=== PATIENT | female | born 1970 | race Hispanic/Latino ===

== ENCOUNTER 2018-05-16 14:30 | Emergency (ER) | payer MEDICAID, OTHER ==
[2018-05-16 14:40] VITALS: O2SAT 100
[2018-05-16 15:09] VITALS: RESP 16
--- NOTE | 2018-05-16 15:58 | ED PDOC ---
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 Patient reports she is occasionally unable to catch her breath. She was seen by her PMD who prescribed her muscle relaxants and Prednisolone. However, x2 days after she finished taking her medications, patient states pain started again. Patient had tests done which sh owed an elevated D Dimer of 0.863, she was advised to come to the ED for a chest CT. She denies any fever, chills, abdominal pain, nausea, vomit, headache, weakness, numbness or tingling. No further medical complaints. PMD: Jg Rod Past Medical History Reviewed: Historical Data, Nursing Documentation, Vital Signs Vital Signs: Last Vital Signs Temp 98.4 F 05/16/18 14:39 Pulse 74 05/16/18 14:39 Resp 16 05/16/18 15:07 BP 123/86 05/16/18 14:39 Pulse Ox 100 05/16/18 15:07 - Medical History PMH: Hypothyroidism Other PMH: murmur - Surgical History Surgical History: No Surg Hx - Family History Family History: States: Unknown Family Hx - Social History Alcohol: None Drugs: Denies - Allergies Allergies/Adverse Reactions: Allergies Allergy/AdvReac Type Severity Reaction Status Date / Time Sulfa (Sulfonamide Allergy RASH Verified 05/16/18 14:40 Antibiotics) Curb-65 Severity Score - CURB-65 Severity Score Confusion: No Bun >19mg/dl (>7mmol/L): No Respiratory Rate greater than/equal to 30: No Systolic BP <90 or Diastolic BP less than/equal 60mmHg: No Age >64: No Curb-65 Score: 0 Percentage 30-day mortality: 0.6% Wells Criteria for PE - Wells Criteria for Pulmonary Embolism Clinical Signs and Symptoms of DVT: No P.E is #1 Diagnosis, or Equally Likely: No Heart Rate >100: No Immobilization at least 3 days;Surgery previous 4 weeks: No Previous, objectively diagnosed PE or DVT: No Hemoptysis: No Malignancy w/treatment within 6 months, or palliative: No Total Score: 0 Review of Systems ROS Statement: Except As Marked, All Systems Reviewed And Found Negative Constitutional: Negative for: Fever, Chills Cardiovascular: Positive for: Chest Pain Respiratory: Positive for: Shortness of Breath Gastrointestinal: Negative for: Nausea, Vomiting, Abdominal Pain Neurological: Negative for: Weakness, Numbness, Headache Physical Exam - Reviewed Nursing Documentation Reviewed: Yes Vital Signs Reviewed: Yes - Physical Exam Appears: Positive for: Uncomfortable Head Exam: Positive for: ATRAUMATIC, NORMAL INSPECTION, NORMOCEPHALIC Skin: Positive for: Normal Color, Warm, Dry Eye Exam: Positive for: Normal appearance, EOMI, PERRL Neck: Positive for: Normal, Painless ROM, Supple Cardiovascular/Chest: Positive for: Regular Rate, Rhythm, Murmur (faint murmur at pulmonic and aortic valve). Negative for: Gallop, Friction Rub Respiratory: Positive for: Normal Breath Sounds (clear to auscultation). Negative for: Respiratory Distress Gastrointestinal/Abdominal: Positive for: Normal Exam, Soft. Negative for: Tenderness, Guarding, Rebound Back: Positive for: Normal Inspection. Negative for: L CVA Tenderness, R CVA Tenderness, Vertebral Tenderness Extremity: Positive for: Normal ROM (upper and lower extremities). Negative for : Calf Tenderness, Deformity, Swelling Neurologic/Psych: Positive for: Alert, Oriented. Negative for: Motor/Sensory Deficits - Laboratory Results Result Diagrams: 05/16/18 15:55 05/16/18 15:55 - ECG O2 Sat by Pulse Oximetry: 100 (RA) Pulse Ox Interpretation: Normal Medical Decision Making Medical Decision Making: Time: 14:54 Initial Impression: Chest pain and shortness of breath with history of hypothyroidism. Previous D Dimer elevation by PMD w/ recommended CT chest to r/o PE. Patient stable on monitor but uncomfortable. Labs with repeat dimer, troponin, CXR, thyroid levels and CT chest to r/o PE. Initial Plan: --VBG Shock panel --Angio Chest PE Protocol [CT] --BNP --CMP --T3 --T4 --TSH --Troponin I --CBC w/ differential --EKG --D Dimer --PT --PTT --Chest Portable [RAD] --Reevaluation 18:22 Labs show mildly elevated D Dimer at 300 and mildly low T3. Rest of labs are normal. CT of chest shows no abnormalities and CXR shows no active disease. Vitals remain stable. Patient reports Ibuprofen and steroids improved symptoms before. Will give Decadron and Toradol. Patient states she prefers to go home and will follow up with her PMD. Patient's Well's Criteria is 0 and Heart Score is 0. Return parameters discussed with patient who will follow with her PMD at [facility] for necessary referrals and follow up with barber shop manager for mildly low T3 Scribe Attestation: Documented by Som Sahni, acting as a scribe for Crys Bess MD Provider Scribe Attestation: All medical record entries made by the Scribe were at my direction and personally dictated by me. I have reviewed the chart and agree that the record accurately reflects my personal performance of the history, physical exam, medical decision making, and the department course for this patient. I have also personally directed, reviewed, and agree with the discharge instructions and disposition. Disposition - Clinical Impression Clinical Impression: Atypical chest pain - Disposition Disposition: Routine/Home Disposition Time: 18:22 Condition: IMPROVED Additional Instructions: Follow up with primary medical doctor for further evaluation of chest pain. Cat scan and Xray showed no abnormalities. D-dimer, which is non-specific, was mildly elevated. T3 was mildly low. Enzymes that measure damage to the heart were not detected. If you began to have worsened pain or other new symptoms at home, return to the emergency department immediately. Instructions: Chest Pain (DC), Costochondritis (DC) Forms: [employer] (Burmese) Print Language: SUDANESE
[2018-05-16 16:03] LABS: BASO # 0.1 K/uL (0.0-0.2); EOS % 0.6 % (0.0-4.0); HEMOGLOBIN 13.1 g/dL (12.0-16.0); LYMPH # 1.5 K/uL (1.0-4.3); LYMPH % 18.5 % (20.0-40.0); MEAN CELL VOLUME 84.7 fl (81.0-99.0); MEAN CORPUSCULAR HEMOGLOBIN 28.2 pg (27.0-31.0); MEAN CORPUSCULAR HGB CONC 33.3 g/dL (33.0-37.0); MEAN PLATELET VOLUME 7.5 fl (7.2-11.7); MONO # 0.6 K/uL (0.0-0.8); MONO % 7.5 % (0.0-10.0); NEUT # 5.9 K/uL (1.8-7.0); NEUT % 72.4 % (50.0-75.0); RBC 4.63 Mil/uL (3.80-5.20); RED CELL DISTRIBUTION WIDTH 13.9 % (11.5-14.5); WHITE BLOOD COUNT 8.2 K/uL (4.8-10.8)
[2018-05-16 16:04] LABS: VENOUS BLOOD GAS BASE EXCESS 2.7 mmol/L (0.0-2.0); VENOUS BLOOD GAS PCO2 50 mmHg (40-60); VENOUS BLOOD GAS PO2 25 mm/Hg (30-55); VENOUS BLOOD PH 7.37 (7.32-7.43)
[2018-05-16 16:22] LABS: PROTHROMBIN TIME 11.3 Seconds (9.8-13.1)
[2018-05-16] MEDS ORDERED: Iodixanol 320 MG/ML 100 ML BOTTLE IV ONE (16:22)
[2018-05-16] MEDS ORDERED: Sodium Chloride 0.9% 50 ML IV ONE (16:22)
--- NOTE | 2018-05-16 16:23 | RAD ---
Date of service: 05/16/2018 HISTORY: chest pain COMPARISON: No prior. FINDINGS: LUNGS: No active pulmonary disease. PLEURA: No significant pleural effusion identified, no pneumothorax apparent. CARDIOVASCULAR: No aortic atherosclerotic calcification present. Normal cardiac size. No pulmonary vascular congestion. OSSEOUS STRUCTURES: No significant abnormalities. VISUALIZED UPPER ABDOMEN: Normal. OTHER FINDINGS: None. IMPRESSION: No active disease.
[2018-05-16 16:27] LABS: ALB/GLOB RATIO 1.2 (1.0-2.1); ALBUMIN 4.1 g/dL (3.5-5.0); ALT/SGPT 34 U/L (9-52); AST/SGOT 26 U/L (14-36); BLOOD UREA NITROGEN 19 mg/dl (7-17); GFR NON-AFRICAN AMERICAN > 60
[2018-05-16 16:30] LABS: PARTIAL THROMBOPLASTIN TIME 31.5 Seconds (25.6-37.1)
[2018-05-16 16:43] LABS: B-TYPE NATRIURETIC PEPTIDE 76.5 pg/ml (0-450)
[2018-05-16 16:47] LABS: T4 7.36 ug/dl (5.5-11.0)
[2018-05-16 17:01] LABS: T3 0.901 nmol/L (1.49-2.60)
[2018-05-16] MEDS ORDERED: Sodium Chloride 0.9% 1,000 ML IV STA (17:14)
--- NOTE | 2018-05-16 17:21 | CT ---
Date of service: 05/16/2018 PROCEDURE: CT Chest with contrast (Pulmonary Angiogram) HISTORY: chest pain, elevated dimer, SOB COMPARISON: None available. TECHNIQUE: Axial computed tomography images were obtained of the chest in the pulmonary arterial phase of enhancement. Coronal and sagittal reformatted images were created and reviewed. Intravenous contrast dose: 72 mL Visipaque 320 Radiation dose: Total exam DLP = 254.14 mGy-cm. This CT exam was performed using one or more of the following dose reduction techniques: Automated exposure control, adjustment of the mA and/or kV according to patient size, and/or use of iterative reconstruction technique. FINDINGS: PULMONARY ARTERIES: Unremarkable. No pulmonary embolism. AORTA: No acute findings. No thoracic aortic aneurysm. No aortic atherosclerotic calcification or mural plaque present. LUNGS: Unremarkable. No nodule, mass or pulmonary consolidation. PLEURAL SPACES: Unremarkable. No effusion or pneumothorax. HEART: Unremarkable. No cardiomegaly. No significant pericardial effusion. LYMPH NODES: No lymphadenopathy. BONES, CHEST WALL: Unremarkable. No fracture or destructive lesion OTHER FINDINGS: Unremarkable. IMPRESSION: Unremarkable CT pulmonary angiogram. No pulmonary embolus.
[2018-05-16 18:15] VITALS: TEMP 98
[2018-05-16] MEDS ORDERED: Dexamethasone 12 MG in Sodium Chloride 0.9% 50 ML IV STA (18:16)
[2018-05-16] MEDS ORDERED: Dexamethasone 4 mg/1 ml IV ONE (18:30)
[2018-05-16 19:49] VITALS: BP 124/76; PULSE 78
--- NOTE | 2018-05-17 07:25 | CARD ---
APPROVED REPORT Date of service: 05/16/2018 EKG Measurement Heart [id number] CO [id number] <Conclusion> Normal sinus rhythm Normal ECG
== END 2018-05-16 19:21 | disposition home or self-care (01) ==
LOC: H.ER 14:30
DX: R07.89 Other chest pain (principal); E06.3 Autoimmune thyroiditis; R79.1 Abnormal coagulation profile; Z88.2 Allergy status to sulfonamides
CPT/HCPCS: 71045; 71275; 80053; 81025; 82803; 83880; 84436; 84443; 84480; 84484; 85025; 85378; 85610; 85730; 93005; 96361; 96374; 96375; 99285; J1100; J1885; J7030; Q9967